=== PATIENT | female | born 1965 | race Caucasian/White ===

== ENCOUNTER 2017-12-22 23:37 | Inpatient (IN) | payer BC, MEDICAID ==
[~2017-12-22] VITALS: Ht 165.1 cm; Wt 110.1 kg
[2017-12-22] MEDS ORDERED: OMNIPAQUE 350 MG/ML, 100ML BOTTLE ONE (23:56)
[2017-12-22] MEDS ORDERED: ONDANSETRON 2MG/ML, 2ML ONE (23:57)
[2017-12-22] MEDS ORDERED: MORPHINE SULFATE 4 MG/ML, 1ML ONE (23:58)
[2017-12-23] MEDS ORDERED: ONDANSETRON 2MG/ML, 2ML IVPush ONE
[2017-12-23] MEDS ORDERED: SODIUM CHLORIDE FLUSH 10ML SYR IVF ONE
[2017-12-23] MEDS ORDERED: MORPHINE SULFATE 4 MG/ML, 1ML IVPush PRN
[2017-12-23] MEDS ORDERED: SODIUM CHLORIDE 0.9% 1,000ML IVBOLUS ONE
[2017-12-23 00:15] LABS: BASOPHILS # (AUTO) 0.13 x10^3/uL (0-0.1); BASOPHILS % (AUTO) 1 % (0-1); EOSINOPHILS # (AUTO) 0.18 x10^3/uL (0-0.4); EOSINOPHILS % (AUTO) 2 % (1-7); LYMPHOCYTES # (AUTO) 2.86 x10^3/uL (1-3.4); LYMPHOCYTES % (AUTO) 24 % (22-44); MD NO; MEAN CORPUSCULAR HEMOGLOBIN 27.2 pg (27.0-34.8); MEAN CORPUSCULAR HGB CONC 32.9 g/dL (32.4-35.8); MEAN CORPUSCULAR VOLUME 82.6 fL (80-100); MEAN PLATELET VOLUME 9.5 fL (7.4-10.4); MONOCYTES # (AUTO) 0.79 x10^3/uL (0.2-0.8); MONOCYTES % (AUTO) 7 % (2-9); NEUTROPHILS # (AUTO) 7.81 x10^3/uL (1.8-6.8); NEUTROPHILS % (AUTO) 66 % (42-75); PLATELET COUNT 434 x10^3/uL (130-400); RED BLOOD COUNT 5.49 x10^6/uL (3.82-5.3); RED CELL DISTRIBUTION WIDTH 14.3 % (9.6-15.2)
[2017-12-23 00:27] LABS: ANION GAP 9 mmol/L (5-15); CALCIUM 9.4 mg/dL (8.5-10.1); CHLORIDE 107 mmol/L (98-107); CREATININE 0.93 mg/dL (0.55-1.02)
[2017-12-23 00:36] LABS: CULTURE INDICATED? YES; MICROSCOPIC INDICATED
[2017-12-23] MEDS ORDERED: metroNIDAZOLE 500 MG TABLET ONE (01:29)
[2017-12-23] MEDS ORDERED: SULFAMETH./TRIMETHOPRIM DS 800MG/160MG TABLET ONE (01:29)
[2017-12-23] MEDS ORDERED: SULFAMETH./TRIMETHOPRIM DS 800MG/160MG TABLET PO ONE (01:30)
[2017-12-23] MEDS ORDERED: metroNIDAZOLE 500 MG TABLET PO ONE (01:30)
[2017-12-23] MEDS ORDERED: CEFOTETAN PMX 1GM/50ML 50 ML IV ONE (02:30)
[2017-12-23] MEDS ORDERED: CEFOTETAN PMX 1GM/50ML 50 ML ONE (02:34)
[2017-12-23 03:19] VITALS: BP 114/79
[2017-12-23 03:35] VITALS: BP 117/72
[2017-12-23] MEDS ORDERED: LEVO88TA2 PO (03:56)
[2017-12-23] MEDS ORDERED: MORPHINE SULFATE 4 MG/ML, 1ML ONE (04:14)
[2017-12-23] MEDS ORDERED: BUTA1CAP59 PO (04:28)
[2017-12-23] MEDS ORDERED: morphine SULFATE 10 MG/ML, 1ML IVPush PRN (04:30)
[2017-12-23] MEDS ORDERED: SODIUM CHLORIDE 0.9% 1,000 ML IV SCH (04:30)
[2017-12-23] MEDS: PIPERACILLIN/TAZO/PMX 3.375GM 50 ML IV SCH ×3 (04:44→20:22)
[2017-12-23] MEDS: SODIUM CHLORIDE 0.9% 1,000 ML IV SCH ×3 (04:46→23:43)
[2017-12-23] MEDS: MORPHINE SULFATE 4 MG/ML, 1ML IVPush PRN ×4 (04:53→19:10)
[2017-12-23 07:48] VITALS: BP 100/66
[2017-12-23] MEDS: BUTALB/APAP/CAFFEINE 50MG/325MG/40MG PO PRN ×3 (08:11→20:38)
[2017-12-23 13:39] VITALS: BP 101/65
[2017-12-23] MEDS: ONDANSETRON 2MG/ML, 2ML IVPush PRN ×2 (15:06→22:09)
[2017-12-23 18:59] VITALS: BP 107/72
[2017-12-24 01:44] VITALS: BP 106/63
[2017-12-24] MEDS: PIPERACILLIN/TAZO/PMX 3.375GM 50 ML IV SCH ×3 (04:34→21:45)
[2017-12-24] MEDS: BUTALB/APAP/CAFFEINE 50MG/325MG/40MG PO PRN ×2 (04:44→16:59)
[2017-12-24 05:47] LABS: ANION GAP 9 mmol/L (5-15); CALCIUM 8.1 mg/dL (8.5-10.1); CHLORIDE 111 mmol/L (98-107)
[2017-12-24 06:03] LABS: BASOPHILS # (AUTO) 0.06 x10^3/uL (0-0.1); BASOPHILS % (AUTO) 1 % (0-1); EOSINOPHILS # (AUTO) 0.18 x10^3/uL (0-0.4); EOSINOPHILS % (AUTO) 2 % (1-7); LYMPHOCYTES # (AUTO) 1.96 x10^3/uL (1-3.4); LYMPHOCYTES % (AUTO) 23 % (22-44); MD NO; MEAN CORPUSCULAR HEMOGLOBIN 27.4 pg (27.0-34.8); MEAN CORPUSCULAR HGB CONC 32.7 g/dL (32.4-35.8); MEAN CORPUSCULAR VOLUME 83.7 fL (80-100); MEAN PLATELET VOLUME 9.4 fL (7.4-10.4); MONOCYTES # (AUTO) 0.59 x10^3/uL (0.2-0.8); MONOCYTES % (AUTO) 7 % (2-9); NEUTROPHILS # (AUTO) 5.58 x10^3/uL (1.8-6.8); NEUTROPHILS % (AUTO) 67 % (42-75); PLATELET COUNT 346 x10^3/uL (130-400); RED CELL DISTRIBUTION WIDTH 14.4 % (9.6-15.2)
[2017-12-24 07:54] VITALS: BP 105/70
[2017-12-24] MEDS: SODIUM CHLORIDE 0.9% 1,000 ML IV SCH ×2 (10:00→18:39)
[2017-12-24] MEDS: MORPHINE SULFATE 4 MG/ML, 1ML IVPush PRN ×3 (10:04→22:58)
[2017-12-24] MEDS: ONDANSETRON 2MG/ML, 2ML IVPush PRN ×2 (10:04→18:16)
[2017-12-24 14:00] VITALS: BP 95/64
[2017-12-24 19:14] VITALS: BP 109/69
[2017-12-25] MEDS: BUTALB/APAP/CAFFEINE 50MG/325MG/40MG PO PRN ×2 (00:58→11:50)
[2017-12-25 01:23] VITALS: BP 99/57
[2017-12-25] MEDS: SODIUM CHLORIDE 0.9% 1,000 ML IV SCH (05:50)
[2017-12-25] MEDS: PIPERACILLIN/TAZO/PMX 3.375GM 50 ML IV SCH ×3 (05:50→21:51)
[2017-12-25 07:48] VITALS: BP 103/69
[2017-12-25] MEDS: MORPHINE SULFATE 4 MG/ML, 1ML IVPush PRN ×3 (07:55→22:35)
[2017-12-25] MEDS: ONDANSETRON 2MG/ML, 2ML IVPush PRN (07:56)
[2017-12-25] MEDS ORDERED: POLYETHYLENE GLYCOL 17 GM PACKET PO PRN (12:30)
[2017-12-25 14:00] VITALS: BP 102/71
[2017-12-25] MEDS: ONDANSETRON ODT 4 MG PO PRN (18:40)
[2017-12-25 19:09] VITALS: BP 98/62
[2017-12-25] MEDS: DOCUSATE 100 MG CAPSULE PO SCH (21:00)
[2017-12-25] MEDS: SODIUM CHLORIDE FLUSH 10ML SYR IVF SCH (21:52)
[2017-12-26 02:30] VITALS: BP 96/58
[2017-12-26] MEDS: MORPHINE SULFATE 4 MG/ML, 1ML IVPush PRN ×2 (02:54→08:57)
[2017-12-26 05:32] LABS: BASOPHILS # (AUTO) 0.06 x10^3/uL (0-0.1); BASOPHILS % (AUTO) 1 % (0-1); EOSINOPHILS # (AUTO) 0.31 x10^3/uL (0-0.4); EOSINOPHILS % (AUTO) 5 % (1-7); LYMPHOCYTES # (AUTO) 2.31 x10^3/uL (1-3.4); LYMPHOCYTES % (AUTO) 33 % (22-44); MD NO; MEAN CORPUSCULAR HEMOGLOBIN 26.9 pg (27.0-34.8); MEAN CORPUSCULAR HGB CONC 32.3 g/dL (32.4-35.8); MEAN CORPUSCULAR VOLUME 83.1 fL (80-100); MEAN PLATELET VOLUME 9.7 fL (7.4-10.4); MONOCYTES # (AUTO) 0.66 x10^3/uL (0.2-0.8); MONOCYTES % (AUTO) 10 % (2-9); NEUTROPHILS # (AUTO) 3.58 x10^3/uL (1.8-6.8); NEUTROPHILS % (AUTO) 52 % (42-75); PLATELET COUNT 338 x10^3/uL (130-400); RED BLOOD COUNT 4.31 x10^6/uL (3.82-5.3); RED CELL DISTRIBUTION WIDTH 14.4 % (9.6-15.2)
[2017-12-26] MEDS: PIPERACILLIN/TAZO/PMX 3.375GM 50 ML IV SCH (05:59)
[2017-12-26] MEDS: BUTALB/APAP/CAFFEINE 50MG/325MG/40MG PO PRN (06:08)
[2017-12-26 07:44] VITALS: BP 95/63
[2017-12-26] MEDS: ONDANSETRON ODT 4 MG PO PRN (08:57)
[2017-12-26] MEDS: DOCUSATE 100 MG CAPSULE PO SCH (08:59)
[2017-12-26] MEDS: SODIUM CHLORIDE FLUSH 10ML SYR IVF SCH (08:59)
[2017-12-26] MEDS ORDERED: AMOX1TAB64 PO (10:50)
[2017-12-26 12:15] VITALS: BP 117/83
== END 2017-12-26 13:30 | disposition home or self-care (01) | DRG 392 ==
LOC: ED 12-23 03:22 → 4NOR 12-23 03:29 → DCLOUNGE 12-26 13:30
PROVIDERS: ADMIT Family Medicine; ATTEND Hospitalist
DX: K57.20 Diverticulitis of large intestine with perforation and abscess without bleeding (principal); Z68.41 Body mass index [BMI] 40.0-44.9, adult; E03.9 Hypothyroidism, unspecified; G43.909 Migraine, unspecified, not intractable, without status migrainosus; E66.9 Obesity, unspecified; E86.0 Dehydration; Z80.0 Family history of malignant neoplasm of digestive organs; Z88.5 Allergy status to narcotic agent
CPT/HCPCS: 36415; 74177; 80048; 81001; 82040; 83735; 84100; 85025; 87086; 96361; 96374; 96375; J2405; J2543; Q0162; Q9967; J2270; J7030; S0074